=== PATIENT | female | born 2000 | race Two or more races ===

== ENCOUNTER 2020-07-03 10:17 | Outpatient (REF) | payer OTHER, MEDICAID, SELFPAY | END 2020-07-03 10:18 | disposition home or self-care (01) | LOC: HO.LAB 10:17 | PROVIDERS: Visit Provider Internal Medicine | DX: Z20.828 Contact with and (suspected) exposure to other viral communicable diseases (principal) | CPT/HCPCS: C9803; U0003 ==

== ENCOUNTER 2021-02-05 12:50 | Emergency (ER) | payer OTHER, SELFPAY ==
--- NOTE | ~2021-02-05 | XR_ITS ---
EXAMINATION: XR CHEST CLINICAL INFORMATION: Dry cough COMPARISON: None TECHNIQUE: 2 views of the chest were obtained. FINDINGS: No significant abnormality is noted involving the heart, lungs, mediastinum, bony thorax or soft tissues. XR/XR chest 2V IMPRESSION: Unremarkable chest exam.
[2021-02-05 12:53] VITALS: BP 132/82; PULSE 88; RESP 18; TEMP 36.6; O2SAT 97; BMI 18.8
--- NOTE | 2021-02-05 13:21 | ED.GENADULT ---
HPI - General Adult General Chief complaint: Upper Respiratory Symptoms Stated complaint: Ribs hurting, coughing Time Seen by Provider: 02/05/21 13:18 Source: patient Mode of arrival: ambulatory Limitations: no limitations History of Present Illness HPI narrative: 20 y/o female with history of asthma presents to the ER with left sided rib pain in the setting of dry cough for the last 2 weeks. She states the cough is worse at night and when she lays down. Pain is worse with coughing and movement. She is fully vaccinated against COVID. She denies fever, chills, difficulty breathing, phlegm production or chest pain. She has been using her albuterol with some improvement. She also reports some stuffy nose at night and post nasal drip. Denies history of allergies in the past. She sleeps with both an air conditioner and a fan. MD complaint: cough + rib pain Onset (ago): week(s) (2) Location: chest (left lateral) Severity: moderate Severity scale (1-10): 5 Quality: aching Pain Consistency: intermittent Relieving factors: rest Exacerbating factors: movement and other (cough) Associated symptoms: cough Treatments prior to arrival: none Related Data Previous Rx's Medication Instructions Recorded albuterol sulfate 1 inh INHALATION QID PRN #6.7 g 02/05/21 cetirizine [Zyrtec] 10 mg PO DAILY #14 tab 02/05/21 fluticasone propionate [Children's 1 spray INTRANASAL BID #16 g 02/05/21 Flonase Allergy Rlf] hydrocodone-homatropine [Hycodan] 5 ml PO Q6H PRN #60 ml 02/05/21 ibuprofen 600 mg PO Q8H PRN #20 tab 02/05/21 Allergies Allergy/AdvReac Type Severity Reaction Status Date / Time No Known Allergies Allergy Unverified 04/11/20 18:32 Review of Systems Review of Systems: Constitutional: No Fever, No Chills ENT/Mouth: No sore throat, + Rhinorrhea, No Swallowing Difficulty Cardiovascular: + Chest Pain, + SOB, No Orthopnea, No Edema Respiratory: + Cough, No Sputum, No Wheezing, No dyspnea Gastrointestinal: No Nausea, No Vomiting, No Diarrhea, No abdominal Pain Musculoskeletal: No joint pain, No Myalgias Skin: No Skin Lesions, No rash Neuro: No Weakness, No Numbness, No Dizziness, + Headache Heme/Lymph: No Bruising, No Lymphadenopathy PMFSH Past Medical History Attestation statement: The following information was validated with the patient. Medical History Asthma Social History Social History Alcohol intake: current Alcohol intake frequency: a few times a month Patient Tobacco Use Status: Never used Tobacco Smoked in Last 30 Days: No Use of substances other than those prescribed or required for medical reasons: No Advance Directives: Yes Advance Directives Information Provided: No Advance Directives on File: No Patient : No Physical Exam Vital Signs: Vital Signs: Last Vital Signs Temp 97.8 F 02/05/21 12:53 Pulse 88 02/05/21 12:53 Resp 18 02/05/21 12:53 BP 132/82 02/05/21 12:53 Pulse Ox 97 02/05/21 12:53 Body Mass Index 18.8 Appearance: Alert. Oriented X3. No acute distress. Eyes: Pupils equal, round and reactive to light. ENT: Pharynx normal. Neck: Normal inspection. Neck supple. CVS: Normal heart rate and rhythm. Pulses normal. Respiratory: No respiratory distress. Breath sounds normal. Left lateral chest wall with mild tenderness, no skin changes, no deformity palpable. Abdomen: Soft and nontender. +BS x4 Skin: Skin warm and dry. Normal skin color. Normal skin turgor. No rashes. Extremities: No lower extremity edema. No calf tenderness Neuro: Oriented X 3. No motor deficit. No sensory deficit. Course Course Course Narrative: 20 y/o female with history of mild intermittent asthma presenting with dry cough and rib pain x2 weeks. Lungs are clear on exam. Concern for possible seasonal allergies vs GERD causing nocturnal cough. CXR is clear. Will treat for costochondritis with NSAID and antitussive. Will also start empiric zyrtec and flonase for possible allergies. Encouraged to be more regular with omprazole at home to see if this helps her cough. She has no other signs or symptoms of acute respiratory infection. No role for abx. Encouraged to f/u with her PCP. Stable for d/c home. Critical Care Time Critical Care Time Critical Care Time: No Discharge Plan Discharge Clinical Impression: Acute costochondritis Allergies Qualifiers: Encounter type: initial encounter Qualified Code(s): T78.40XA - Allergy, unspecified, initial encounter Patient Disposition: Home, Self-Care Instructions: Costochondritis (ED), Allergies (ED), Acute Cough (ED) Additional Instructions: Your chest x-ray was normal. Take the prescribed ibuprofen for rib pain. Recommend starting treatment for possible seasonal allergies for the next 2 weeks. Also recommend starting over the counter omeprazole for heartburn and reflux, as this can also cause a cough. Use your albuterol inhaler as needed for shortness of breath or wheezing. Follow up with your doctor in 1 week. If you have worsening cough, shortness of breath or develop fever, phlegm or wheezing come back to the ER for further evaluation. Prescriptions: New albuterol sulfate 90 mcg/actuation HFA aerosol inhaler 1 inh inhalation QID PRN (Reason: shortness of breath or wheezing) Qty: 6.7 RF: 0 ibuprofen 600 mg tablet 600 mg PO Q8H PRN (Reason: pain) Qty: 20 RF: 0 fluticasone propionate [Children's Flonase Allergy Rlf] 50 mcg/actuation spray,suspension 1 spray intranasal BID Qty: 16 RF: 0 cetirizine [Zyrtec] 10 mg tablet 10 mg PO DAILY Qty: 14 RF: 0 hydrocodone-homatropine [Hycodan] 5-1.5 mg/5 mL (5 mL) syrup 5 ml PO Q6H PRN (Reason: cough) Qty: 60 RF: 0 Interventions: ED Discharge Assessment Last Done: 02/05/21 13:56 Discharge Date/Time: 02/05/21 13:57
== END 2021-02-05 13:57 | disposition home or self-care (01) ==
PROVIDERS: Emergency Provider Emergency Medicine
DX: M94.0 Chondrocostal junction syndrome [Tietze] (principal); R05 Cough; Z79.899 Other long term (current) drug therapy
CPT/HCPCS: 71046; 99284

== ENCOUNTER 2021-09-10 10:31 | Emergency (ER) | payer OTHER, SELFPAY ==
[2021-09-10 10:55] VITALS: BP 119/80; PULSE 87; RESP 16; TEMP 36.8; O2SAT 100; BMI 19.3
--- NOTE | 2021-09-10 11:09 | ED_ITS ---
HPI - URI/Sore Throat General Chief Complaint: Upper Respiratory Symptoms Stated Complaint: cough, chest pain w/cough Time Seen by Provider: 09/10/21 10:57 Source: patient Mode of arrival: ambulatory Limitations: no limitations History of Present Illness HPI Narrative: 21-year-old female who presents emergency department for evaluation cough, chest pain shortness of breath dyspnea on exertion x3 weeks. The patient has a history of asthma. She states that she has been using her steroid inhaler twice a day and has had to use her albuterol inhaler 4-5 taken today which is an unusual amount for her. She states that despite using her albuterol inhaler she still feels short of breath. She states that over the past 3 weeks she has had a cough which is productive of thick yellow to white sputum. She is also complaining of chest pain. She points to her sternum when asked to localize the pain. The pain is a tightness which is constant but is worse with breathing and with coughing, the pain is 7/10 at its worst. The patient denied fever, she has had rhinorrhea. She states that in the beginning of her illness she did have a sore throat times several days that then resolved. She has had nausea but no vomiting. She denied diarrhea or abdominal pain. She denied myalgias, arthralgias, loss of sense of taste or smell. The patient received the Pfizer COVID-19 vaccine x2 shots he has not received a booster shot yet. MD elicited complaint: cough and other (Chest pain) Pertinent past history: asthma Onset (ago): week(s) (3) Consistency: constant and progressively worsening Severity: severe Pain scale (0-10): 7 Description of mucous: yellow, green and bloody (Occasionally) Able to tolerate fluids by mouth: Yes Exacerbating factors: deep breaths Relieving factors: nothing Associated symptoms: rhinorrhea, sore throat and nausea Treatments prior to arrival: none Related Data Previous Rx's Medication Instructions Recorded albuterol sulfate 90 mcg/actuation 1 inh INHALATION QID PRN #6.7 g 02/05/21 aerosol inhaler cetirizine 10 mg tablet (Zyrtec) 10 mg PO DAILY #14 tab 02/05/21 fluticasone propionate 50 1 spray INTRANASAL BID #16 g 02/05/21 mcg/actuation nasal spray,suspension (Children's Flonase Allergy Relief) hydrocodone-homatropine 5 mg-1.5 5 ml PO Q6H PRN #60 ml 02/05/21 mg/5 mL (5 mL) oral syrup (Hycodan) ibuprofen 600 mg tablet 600 mg PO Q8H PRN #20 tab 02/05/21 azithromycin 250 mg tablet See Rx Instructions .ROUTE 09/10/21 (Zithromax Z-Sergio) .COMPLEX #6 tab prednisone 20 mg tablet 60 mg PO DAILY 5 Days #15 tab 09/10/21 Allergies Allergy/AdvReac Type Severity Reaction Status Date / Time No Known Allergies Allergy Unverified 04/11/20 18:32 Review of Systems Review of Systems: Yes all other systems are reviewed and are negative Neurologic: Reports Abnormal speech present [facility] Past Medical History [facility] Narrative: Past medical history: Asthma. Past surgical history: Left knee ACL repair. Social history: She denies tobacco use. She occasionally drinks alcohol. She denies drug use. Medical History Asthma Social History Social History Alcohol intake: current Alcohol intake frequency: a few times a month Patient Tobacco Use Status: Never used Tobacco Advance Directives: No Advance Directives Information Provided: No Patient : No Physical Exam Vital Signs: Vital Signs: Last Vital Signs Temp 98.3 F 09/10/21 10:55 Pulse 87 09/10/21 10:55 Resp 16 09/10/21 10:55 BP 119/80 09/10/21 10:55 Pulse Ox 100 09/10/21 10:55 BMI result Body Mass Index 19.3 Const: General: cooperative, no acute distress, well developed, alert and awake Orientation/consciousness: oriented to person HENMT: Head: Yes normal to inspection, Yes normocephalic and Yes atraumatic Ears: hearing grossly normal bilaterally General nose exam: Normal external nose present Face and sinus: Yes normal facial exam Mouth: Normal oral and palatal mucosa present, lip normal, tongue normal, oropharynx normal and moist mucous membranes Throat: Yes posterior oropharynx normal, Yes tonsils normal and Yes uvula midline Eyes: General: appearance normal, both eyes and all related structures Eyelids: Yes eyelids normal Conjunctivae: conjunctivae normal Sclerae: sclerae normal Corneas: corneas normal Pupils: Equal, round and reactive pupils present Neck: Neck: Yes normal visual inspection, Yes no lymphadenopathy, Yes trachea midline and Yes supple Thyroid: Thyroid normal Lymphatic: no lymphadenopathy noted Chest: Chest palpation & inspection: normal inspection of the chest and normal palpation of entire chest wall Resp: Effort & Inspection: normal respiratory effort and able to speak in complete sentences Auscultation: clear to auscultation bilaterally Cardio: Rate: regular rate Rhythm: regular rhythm Heart sounds: S1 normal heart sound present, S2 normal heart sound present and no murmurs GI: Inspection: Yes normal to inspection Palpation (GI): Soft to palpation, nontender and No hepatosplenomegaly present Auscultation: normal bowel sounds : General: Yes no CVA tenderness Back/Spine/Pelvis: Back: no CVA tenderness Thoracic/Lumbar Spine: thoracic and lumbar spine normal to inspection Skin: General skin exam: no rashes or lesions noted, no erythema and no jaundice Lesions: no lesions Rashes: no rashes Trauma: no lacerations or abrasions Wounds: no wounds Neuro: General: oriented to person, moves all extremities and no focal motor deficits Cranial nerves: Yes Equal, round and reactive pupils present Cognition (Neuro): normal cognition Speech: Abnormal speech present Motor exam (neuro): Motor abnormalities not present Extrem: General: Yes normal to inspection, Yes no pedal edema and Yes no calf tenderness Right upper extremity: normal to inspection Left upper extremity: normal to inspection Right lower extremity: normal to inspection Left lower extremity: normal to inspection Psych: Appearance: grossly normal Mental Status: mental status grossly normal Speech and movement: Normal speech and movement present Affect: normal affect Attitude: cooperative Thought process: Normal thought process present Insight: Good insight present (Psych) Course Course Course Narrative: 21-year-old female with a history of asthma who presents emergency department for evaluation of 3 weeks of cough productive thick yellow to green sputum with occasional bloody sputum, pleuritic chest pain, shortness of breath and dyspnea exertion. Patient has continue to use her steroid inhaler daily and has had to use her albuterol inhaler more frequently which is unusual for her asthma. Vital signs were normal including an O2 saturation 100% on room air. Physical exam was unremarkable . The patient's presentation is consistent with an atypical bacterial infection possible pneumonia and asthma exacerbation. I did discuss this with the patient. She was started on Zithromax Z-Sergio and prednisone 60 mg daily x5 days. She was given printed and verbal instructions and discharged home. Discharge Plan Discharge Clinical Impression: Upper respiratory infection, Asthma exacerbation Patient Disposition: Home, Self-Care Instructions: Asthma (ED) Additional Instructions: Your lung exam today was normal. Your oxygen level was 100% on room air which is very reassuring. Your symptoms are consistent with an atypical bacterial infection causing your cough and causing you to have a flare-up of your asthma. Continue to use your to inhalers as directed by your doctor. Take Zithromax (azithromycin) Z-Sergio as prescribed. Day 1 take 2 pills, each day after that take 1 pill for total of 5 days. This medication states in your system for 7-10 days and continues to work despite only taking it for 5 days. This medication will treat bacterial infections that are causing a flare-up of your asthma. Take prednisone 20 mg pills, 3 pills once a day for 5 days. Follow-up with your doctor in 2 days. Please return to the emergency department if your symptoms get worse or if you develop any symptoms that are concerning to you. Prescriptions: New azithromycin [Zithromax Z-Sergio] 250 mg tablet See Rx Instructions .ROUTE .COMPLEX Qty: 6 0RF Rx Instructions: take 500 mg today (day 1), then 250 mg for 4 days (days 2-5) prednisone 20 mg tablet 60 mg PO DAILY 5 Days Qty: 15 0RF No Action albuterol sulfate 90 mcg/actuation HFA aerosol inhaler 1 inh inhalation QID PRN (Reason: shortness of breath or wheezing) Qty: 6.7 0RF ibuprofen 600 mg tablet 600 mg PO Q8H PRN (Reason: pain) Qty: 20 0RF fluticasone propionate [Children's Flonase Allergy Rlf] 50 mcg/actuation spray,suspension 1 spray intranasal BID Qty: 16 0RF Rx Instructions: administer into each nostril cetirizine [Zyrtec] 10 mg tablet 10 mg PO DAILY Qty: 14 0RF hydrocodone-homatropine [Hycodan] 5-1.5 mg/5 mL (5 mL) syrup 5 ml PO Q6H PRN (Reason: cough) Qty: 60 0RF Rx Instructions: partial fill ok
== END 2021-09-10 11:25 | disposition home or self-care (01) ==
PROVIDERS: Emergency Provider Emergency Medicine Emergency Medical Services
DX: J06.9 Acute upper respiratory infection, unspecified (principal); J45.901 Unspecified asthma with (acute) exacerbation; Z79.51 Long term (current) use of inhaled steroids; Z79.899 Other long term (current) drug therapy
CPT/HCPCS: 99283; 99284

== ENCOUNTER 2021-12-29 11:59 | Outpatient (REF) | payer OTHER, SELFPAY ==
--- NOTE | ~2021-12-29 | XR_ITS ---
EXAMINATION: KNEE X-RAY CLINICAL INFORMATION: Pain COMPARISON: Previous evening x-ray October 2016 TECHNIQUE: Standing AP view of both knees and lateral and sunrise view of the left knee FINDINGS: Left knee: There are postsurgical changes from ACL repair. There is defect in the anterior cortex of the mid patella seen on the sunrise view that is new. There is new periosteal thickening at the patellar tendon insertion to the tibia. The joint spaces are normal. There is no joint effusion. There may be soft tissue swelling overlying the patellar tendon. Standing AP view of the right knee is unremarkable XR/XR knee standing BI IMPRESSION: Left knee post ACL repair. New midline defect in the anterior patella, question representing postsurgical change. New periosteal reaction at the patellar tendon insertion.
--- NOTE | ~2021-12-29 | XR_ITS ---
EXAMINATION: KNEE X-RAY CLINICAL INFORMATION: Pain COMPARISON: Previous evening x-ray October 2016 TECHNIQUE: Standing AP view of both knees and lateral and sunrise view of the left knee FINDINGS: Left knee: There are postsurgical changes from ACL repair. There is defect in the anterior cortex of the mid patella seen on the sunrise view that is new. There is new periosteal thickening at the patellar tendon insertion to the tibia. The joint spaces are normal. There is no joint effusion. There may be soft tissue swelling overlying the patellar tendon. Standing AP view of the right knee is unremarkable XR/XR knee LT 2V IMPRESSION: Left knee post ACL repair. New midline defect in the anterior patella, question representing postsurgical change. New periosteal reaction at the patellar tendon insertion.
== END 2021-12-29 12:00 | disposition home or self-care (01) ==
LOC: HO.HOSX 11:59
PROVIDERS: Visit Provider Orthopaedic Surgery
DX: Z98.890 Other specified postprocedural states (principal)
CPT/HCPCS: 73560; 73565; 99202

== ENCOUNTER 2022-02-10 15:51 | Outpatient (REF) | payer OTHER, SELFPAY ==
--- NOTE | ~2022-02-10 | MR_ITS ---
EXAMINATION: MR KNEE WITHOUT CONTRAST, LEFT CLINICAL INFORMATION: Left knee pain. ACL reconstruction. COMPARISON: 04/12/2018 TECHNIQUE: MRI of the knee without contrast was performed using routine sequences on a high-field scanner. FINDINGS: MENISCI: Medial Meniscus: Intact Lateral Meniscus: Intact LIGAMENTS: Cruciate: Partial tearing involving the anterior aspect of the graft, with fibers displaced anteriorly, along with synovitis and low signal intensity scar tissue overall measuring 2.5 x 1.0 x 1.8 cm. This has increased since the previous study. The posterior cruciate ligament appears intact. Collateral: Intact EXTENSOR MECHANISM: Postsurgical changes of the patella and tendon. ARTICULAR CARTILAGE/BONE: Patellofemoral Compartment: Normal Medial Compartment: Normal Lateral Compartment: Normal JOINT FLUID AND BURSAE: Trace joint effusion. MR/MR knee LT wo con IMPRESSION: Partial tearing involving the anterior aspect of the ACL graft with prominent soft tissue projecting anteriorly likely representing graft fibers, synovitis, and scarring overall measuring 2.5 x 1.0 x 1.8 cm, increased from the previous study. There is a trace joint effusion.
== END 2022-02-10 15:52 | disposition home or self-care (01) ==
LOC: HO.MRI 15:51
PROVIDERS: Visit Provider Orthopaedic Surgery
DX: Z98.890 Other specified postprocedural states (principal)
CPT/HCPCS: 73721

== ENCOUNTER 2022-07-08 01:35 | Emergency (ER) | payer OTHER, SELFPAY ==
[2022-07-08 01:38] VITALS: BP 114/69; PULSE 90; RESP 16; TEMP 36.7; O2SAT 96; BMI 18.8
[2022-07-08 02:28] LABS: Influenza A PCR NEGATIVE (Negative); Influenza B PCR NEGATIVE (Negative); Resp Syncy Virus RNA Qual PCR NEGATIVE (Negative); SARS COV2 PCR INHOUSE POSITIVE (Negative)
[2022-07-08 05:00] VITALS: BP 111/74; PULSE 84; RESP 18; TEMP 37; O2SAT 98
--- NOTE | 2022-07-08 06:32 | ED_ITS ---
HPI - URI/Sore Throat General Chief Complaint: Upper Respiratory Symptoms Stated Complaint: body aches Time Seen by Provider: 07/08/22 06:26 Source: patient Mode of arrival: ambulatory History of Present Illness HPI Narrative: 22-year-old female who lives at home by herself started with body aches, headaches, chills as well as sore throat since yesterday. Related Data Previous Rx's Medication Instructions Recorded albuterol sulfate 90 mcg/actuation 1 inh inhalation QID PRN shortness 02/05/21 aerosol inhaler of breath or wheezing #6.7 grams cetirizine 10 mg tablet (Zyrtec) 10 mg PO DAILY #14 tabs 02/05/21 fluticasone propionate 50 1 spray intranasal BID #16 grams 02/05/21 mcg/actuation nasal spray,suspension (Children's Flonase Allergy Relief) hydrocodone-homatropine 5 mg-1.5 5 ml PO Q6H PRN cough #60 mL 02/05/21 mg/5 mL (5 mL) oral syrup (Hycodan) ibuprofen 600 mg tablet 600 mg PO Q8H PRN pain #20 tabs 02/05/21 azithromycin 250 mg tablet See Rx Instructions PO .COMPLEX #6 09/10/21 (Zithromax Z-Sergio) tabs prednisone 20 mg tablet 60 mg PO DAILY 5 days #15 tabs 09/10/21 Allergies Allergy/AdvReac Type Severity Reaction Status Date / Time No Known Allergies Allergy Verified 12/29/21 14:23 Review of Systems Review of Systems: Pertinent positives and negatives as stated in HPI. [facility] Past Medical History Source: nursing notes reviewed Medical History Asthma Social History Social History Alcohol intake: current Alcohol intake frequency: a few times a month Patient Tobacco Use Status: Never used Tobacco Advance Directives: No Advance Directives Information Provided: Yes Physical Exam Vital Signs: Vital Signs: Last Vital Signs Temp 98.6 F 07/08/22 05:00 Pulse 84 07/08/22 05:00 Resp 18 07/08/22 05:00 BP 111/74 07/08/22 05:00 Pulse Ox 98 07/08/22 05:00 O2 Del Method 07/08/22 05:00 BMI result Body Mass Index 18.8 VITAL SIGNS: Reviewed. GENERAL: Well developed, well nourished, in no acute distress. HEAD: Normocephalic/atraumatic EYES: PERRLA, EOMI EARS: Ext canals without abnormality, TMs non-bulging and non-erythematous NOSE: Nares patent bilateral OROPHARYNX: no oral lesions noted, posterior pharynx clear and non-erythematous without noted tonsillar enlargement/erythema/exudates NECK: Supple, no adenopathy LUNGS: Normal breath sounds. No adventitious sounds or accessory muscle use. SpO2<98> CARDIOVASCULAR: Regular rate and rhythm without noted murmurs ABDOMEN: Soft, non-tender, non-distended with bowel sounds. MUSCULOSKELETAL: No tenderness, deformities, or effusions noted on gross inspection. EXTREMITIES: No cyanosis, clubbing or edema. SKIN: Inspection of the skin reveals no rashes NEUROLOGIC: Alert and oriented x 4. Strength and sensation to light touch were grossly intact x 4. Course Course Course Narrative: 22-year-old female with history and clinical presentation most consistent with viral syndrome and on review of investigations is noted be COVID-19 positive. Patient was informed of all results and discharged home with instructions to isolate for 5 days and use [id number] analgesics for body aches and temperatures control. Medical Decision Making Lab Data Labs: Lab Results 07/08/22 Range/Units 01:45 Influenza Type A (PCR) NEGATIVE (Negative) Influenza Type B (PCR) NEGATIVE (Negative) RSV RNA Qual (PCR) NEGATIVE (Negative) SARS-CoV-2 RNA (RT-PCR) POSITIVE A (Negative) Discharge Plan Discharge Clinical Impression: Viral syndrome, Lab test positive for detection of COVID-19 virus Patient Disposition: Home, Self-Care Instructions: Viral Syndrome (ED), COVID-19 (Coronavirus Disease 2019) (ED) Additional Instructions: 1. Resume all home medications as prescribed. 2. Increase your water intake as well as utilizing [id number] Tylenol/ibuprofen as needed for body aches, headaches, temperatures greater than 100.4. You have been diagnosed with COVID-19 and must isolate for the next 5 days. You will then need to follow all employer your/states/Federal guidelines. Return to the ER for worsening symptoms Prescriptions: No Action albuterol sulfate 90 mcg/actuation HFA aerosol inhaler 1 inh inhalation QID PRN (Reason: shortness of breath or wheezing) Qty: 6.7 0RF ibuprofen 600 mg tablet 600 mg PO Q8H PRN (Reason: pain) Qty: 20 0RF fluticasone propionate [Children's Flonase Allergy Rlf] 50 mcg/actuation spray,suspension 1 spray intranasal BID Qty: 16 0RF Rx Instructions: administer into each nostril cetirizine [Zyrtec] 10 mg tablet 10 mg PO DAILY Qty: 14 0RF hydrocodone-homatropine [Hycodan] 5-1.5 mg/5 mL (5 mL) syrup 5 ml PO Q6H PRN (Reason: cough) Qty: 60 0RF Rx Instructions: partial fill ok azithromycin [Zithromax Z-Sergio] 250 mg tablet See Rx Instructions .ROUTE .COMPLEX Qty: 6 0RF Rx Instructions: take 500 mg today (day 1), then 250 mg for 4 days (days 2-5) prednisone 20 mg tablet 60 mg PO DAILY 5 Days Qty: 15 0RF Referrals: Eliu,Kaya Bergman MD [Primary Care Provider] - Stand Alone Forms: Work/School Release Interventions: ED Discharge Assessment Last Done: 07/08/22 07:02 Discharge Date/Time: 07/08/22 07:02
== END 2022-07-08 07:02 | disposition home or self-care (01) ==
PROVIDERS: Emergency Provider Student in an Organized Health Care Education/Training Program; PCP Internal Medicine
DX: U07.1 COVID-19 (principal); B34.9 Viral infection, unspecified
CPT/HCPCS: 0241U; 99283

== ENCOUNTER 2022-07-29 18:00 | Emergency (ER) | payer OTHER, SELFPAY ==
--- NOTE | ~2022-07-29 | US_ITS ---
EXAMINATION: US ABDOMEN LIMITED CLINICAL INFORMATION: Right upper quadrant/epigastric pain with nausea and vomiting. COMPARISON: CT abdomen/pelvis 05/01/2014. TECHNIQUE: Real-time imaging of the right upper quadrant abdominal viscera. FINDINGS: PANCREAS: Normal. LIVER: Normal. The liver is normal in size. The liver contour is normal. Parenchymal echogenicity is normal. No focal hepatic lesion. There is no intrahepatic biliary duct dilatation seen. GALLBLADDER: Normal. The gallbladder is physiologically distended without evidence of stones, sludge, polyps, wall thickening or pericholecystic fluid. COMMON BILE DUCT: Normal in caliber measuring 0.2 cm in diameter. RIGHT KIDNEY: Normal. No hydronephrosis. No renal calculi or focal parenchymal lesions. The kidney measures 10 cm in maximum dimension. FREE FLUID: None. US/US abdomen limited IMPRESSION: No acute sonographic abnormalities to explain the patient's symptoms.
[2022-07-29 18:29] VITALS: BP 122/76; PULSE 82; RESP 16; TEMP 36.8; O2SAT 99; BMI 19.5
--- NOTE | 2022-07-29 18:29 | ED_ITS ---
HPI - Abdominal Pain General Chief Complaint: Abdominal Pain <WHIT Abdullahi - Last Filed: 07/29/22 18:33> Stated Complaint: sharp abdominal pain, vomiting <WHIT Abdullahi - Last Filed: 07/29/22 18:33> Time Seen by Provider: 07/30/22 00:37 <WHIT Abdullahi - Last Filed: 07/29/22 18:33> Source: patient <Cortney Fyre MD - Last Filed: 07/30/22 06:25> Mode of arrival: ambulatory <Cortney Frye MD - Last Filed: 07/30/22 06:25> Limitations: no limitations <Cortney Frye MD - Last Filed: 07/30/22 06:25> History of Present Illness HPI narrative: 22-year-old female came in for evaluation of abdominal pain and vomiting. Patient's symptoms started since yesterday after eating home in rice and chicken everybody in the family ate from the same food nobody got sick, patient shortly after started to have epigastric upper abdominal pain with nausea and vomiting that is progressively since then getting worse, patient was unable to tolerate p.o. intake all day with frequent vomiting, no diarrhea, no recent travel, no recent use of antibiotics, no recent exposure to a sick contact Patient is homosexual and decline indications pain , no vaginal bleed or discharge, no dysuria, no frequency urination, no hematuria , no fever, no chills. <Cortney Frye MD - Last Filed: 07/30/22 06:25> Related Data Home Medications: Previous Rx's Medication Instructions Recorded albuterol sulfate 90 mcg/actuation 1 inh inhalation QID PRN shortness 02/05/21 aerosol inhaler of breath or wheezing #6.7 grams cetirizine 10 mg tablet (Zyrtec) 10 mg PO DAILY #14 tabs 02/05/21 fluticasone propionate 50 1 spray intranasal BID #16 grams 02/05/21 mcg/actuation nasal spray,suspension (Children's Flonase Allergy Relief) hydrocodone-homatropine 5 mg-1.5 5 ml PO Q6H PRN cough #60 mL 02/05/21 mg/5 mL (5 mL) oral syrup (Hycodan) ibuprofen 600 mg tablet 600 mg PO Q8H PRN pain #20 tabs 02/05/21 azithromycin 250 mg tablet See Rx Instructions PO .COMPLEX #6 09/10/21 (Zithromax Z-Sergio) tabs prednisone 20 mg tablet 60 mg PO DAILY 5 days #15 tabs 09/10/21 omeprazole magnesium 20 mg 20 mg PO BID #20 tabs 07/30/22 tablet,delayed release (Prilosec OTC) ondansetron 4 mg disintegrating 4 mg PO Q8-12H PRN nausea and 07/30/22 tablet vomiting #7 tabs <WHIT Abdullahi - Last Filed: 07/29/22 18:33> Allergies/Adverse Reactions: Allergies Allergy/AdvReac Type Severity Reaction Status Date / Time No Known Allergies Allergy Verified 12/29/21 14:23 <WHIT Abdullahi - Last Filed: 07/29/22 18:33> Review of Systems Review of Systems All other systems are reviewed and are negative Constitutional: Reports as per HPI and Reports no additional constitutional complaints Eyes: Reports as per HPI and Reports no additional eye complaints Reports system reviewed and no additional complaints, except as documented Cardiovascular: Reports as per HPI and Reports no additional cardiovascular com plaints Respiratory: Reports as per HPI and Reports no additional respiratory complaints Gastrointestinal: Reports as per HPI and Reports no additional gastrointestinal complaints Genitourinary: Reports no additional female genitourinary complaints Musculoskeletal: Reports no additional musculoskeletal complaints Skin/Breast: Reports system reviewed and no additional complaints, except as docu Psychiatric: Reports no additional psychiatric complaints Endocrine: Reports no additional endocrine complaints Hematologic/Lymphatic: Reports no additional hematologic/lymphatic complaints Allergic/Immunologic: Reports no additional allergic/immunologic complaints Reports system reviewed and no additional complaints, except as documented and Reports Abnormal speech present <Cortney Frye MD - Last Filed: 07/30/22 06:25> [facility] Past Medical History Medical History: Medical History Asthma <WHIT Abdullahi - Last Filed: 07/29/22 18:33> Social History Social History: Social History Alcohol intake: current Alcohol intake frequency: a few times a week Patient Tobacco Use Status: Never used Tobacco Smoked in Last 30 Days: No Use of substances other than those prescribed or required for medical reasons: Yes Substance Use Type: Marijuana Advance Directives: No Patient : No <WHIT Abdullahi - Last Filed: 07/29/22 18:33> Physical Exam ED Vital Signs: Vital Signs - 24 hr 07/29/22 18:29 07/30/22 00:48 07/30/22 04:56 Temperature 98.3 F 98.5 F 98.5 F Pulse Rate 82 75 73 Respiratory Rate 16 18 17 Blood Pressure 122/76 118/80 120/78 Pulse Oximetry 99 100 100 Oxygen Delivery Method Room Air Room Air Room Air BMI result Body Mass Index 19.5 <WHIT Abdullahi - Last Filed: 07/29/22 18:33> Vital Signs - 24 hr 07/29/22 18:29 07/30/22 00:48 07/30/22 04:56 Temperature 98.3 F 98.5 F 98.5 F Pulse Rate 82 75 73 Respiratory Rate 16 18 17 Blood Pressure 122/76 118/80 120/78 Pulse Oximetry 99 100 100 Oxygen Delivery Method Room Air Room Air Room Air BMI result Body Mass Index 19.5 vital signs have been reviewed as appeared to be correct. Blood pressure normal. Heart rate normal. Respiration rate normal. Temperature normal. Oxygen saturation normal. <Cortney Frye MD - Last Filed: 07/30/22 06:25> Appearance: Alert. Oriented X3. No acute distress. Head: Normal external exam. Normocephalic. Atraumatic. No Chowdhury signs noted. No raccoon eyes noted Eyes: PERRLA. EOMI. Conjunctiva and sclera normal. Eyelids normal. ENT: TM's Normal. Pharynx normal. Uvula midline. Moist mucous membranes. No trismus noted. No drooling noted. No muffled voice noted. Neck: Normal inspection. Neck supple. FROM. No adenopathy. Thyroid Normal. No meningeal signs. No neck mass noted. CVS: Normal heart rate and rhythm. Heart sound normal. No murmurs noted. Pulses normal throughout. Respiratory: No respiratory distress. Painless inspiration. Breath sounds normal. No wheezes/rales/rhonchi noted. Chest nontender. No accessory muscle usage noted or decreased air movement noted. Abdomen: Soft , epigastric tenderness with no guarding or rebound tenderness . Bowel sounds normal in all 4 quadrants. No distention noted. No organomegaly noted. No visible injury noted. Back: No CVA tenderness. Full range of motion noted. Skin: Skin warm and dry. Normal skin color. Normal skin turgor. No dale hes/lesions/lacerations noted. Extremities: No lower extremity edema. Extremities exhibit normal range of motion. Extremities nontender. Neuro: Oriented X 3. Cranial nerve exam: II-XII are grossly intact No motor deficit. No sensory deficit. Reflexes normal. <Cortney Frye MD - Last Filed: 07/30/22 06:25> Course Course Course Narrative: RME--22yo F w/pmhx asthma c/o epigastric abdominal pain, nausea, vomiting, diarrhea x 2 days. Reports unable to tolerate p.o. Denies suspicious food intake or recent travel Abdomen soft with epigastric and RUQ tenderness, no rebound or guarding Labs, UA, , IVF, GI cocktail, limited abdomen ultrasound ordered <WHIT Abdullahi - Last Filed: 07/29/22 18:33> Reevaluation(s) Reevaluation #1: epigastric pain after eating rice and chicken with nausea and vomiting no diarrhea no other sick contacts unremarkable workup. In the emergency department. Patient already feels better with IV hydration and antinausea medication. <Cortney Frye MD - Last Filed: 07/30/22 06:25> Time: 01:01 <Cortney Frye MD - Last Filed: 07/30/22 06:25> Reevaluation #2: Patient feels better reported improvement and able to tolerate p.o. inta ke will discharge. <Cortney Frye MD - Last Filed: 07/30/22 06:25> Time: 06:25 <Cortney Frye MD - Last Filed: 07/30/22 06:25> Medical Decision Making Differential Diagnosis Differential Diagnoses: The differential diagnosis associated with the presentation includes ( gastritis, food poisoning, gastroenteritis, UTI, biliary colic, renal colic, pyelonephritis, complicated early .) <Cortney Frye MD - Last Filed: 07/30/22 06:25> Lab Data MDM Lab Attestation statement: I reviewed the patient's lab results. <Cortney Frye MD - Last Filed: 07/30/22 06:25> Result Diagrams: : 07/29/22 23:00 07/29/22 23:00 <WHIT Abdullahi - Last Filed: 07/29/22 18:33> Labs: Lab Results 07/29/22 07/29/22 07/29/22 Range/Units 22:56 23:00 23:00 WBC 3.7 L (4.8-10.8) X10*3/uL RBC 4.23 (4.20-5.50) X10*6/uL Hgb 13.6 (12.0-16.0) g/dl Hct 39.5 (37.0-47.0) % MCV 93.4 (80.0-98.0) fL MCH 32.2 (27.0-33.0) pg MCHC 34.4 (31.0-35.0) g/dl RDW 11.9 (11.0-16.0) % Plt Count 125 L (160-400) X10*3/uL MPV 10.7 (9.4-12.3) fL Immature Gran % (Auto) 0.5 H (0.0-0.4) % Neut % (Auto) 69.1 (45-73) % Lymph % (Auto) 16.0 L (20-40) % [place] % (Auto) 13.6 H (2-11) % Eos % (Auto) 0.5 (0-4) % Baso % (Auto) 0.3 (0-2) % Lymph # (Auto) 0.6 L (1.2-4.9) X10*3/uL [place] # (Auto) 0.5 (0.1-1.2) X10*3/uL Eos # (Auto) 0.0 (0.0-0.4) X10*3/uL Baso # (Auto) 0.0 (0.0-0.2) X10*3/uL Abs Immat Gran (auto) 0.02 (0.00-0.03) X10*3/uL Absolute Neuts (auto) 2.6 (2.0-8.3) x10*3/uL Absolute Nucleated RBC 0.000 (0.0-0.012) X10*3/uL Nucleated RBC % (auto) 0.0 (0.0-0.2) /100WBC Sodium 138 (135-145) mmol/L Potassium 3.9 (3.3-5.1) mmol/L Chloride 106 (96-108) mmol/L Carbon Dioxide 23 (22-29) mmol/L Anion Gap 13 (12-20) BUN 9 (9-16) mg/dL Creatinine 0.71 (0.5-1.4) mg/dL Estim Creat Clear Calc 110.2 Estimated GFR > 60 Random Glucose 91 (60-115) mg/dL Calcium 9.4 (8.4-10.2) mg/dL Magnesium 1.8 (1.6-2.6) mg/dL Total Bilirubin 0.8 (0.0-1.0) mg/dL Direct Bilirubin 0.4 (0.0-0.5) mg/dL AST 17 (5-31) U/L ALT 12 (0-31) U/L Alkaline Phosphatase 57 (39-117) U/L Total Protein 7.3 (6.5-8.0) g/dL Albumin 4.5 (3.5-5.0) g/dL Lipase 7 L (8-78) U/L Urine Color Urine Appearance Urine pH (5.0-9.0) Ur Specific [place] (1.005-1.025) Urine Protein (Neg-Trace) mg/dL Urine Glucose (UA) (Negative) mg/dL Urine Ketones (Negative) mg/dL Urine Blood (Negative) Urine Nitrite (Negative) Ur Leukocyte Esterase (Negative) Urine RBC (0-2) /HPF Urine WBC (0-5) /HPF Ur Squamous Epith Cells (0-2) /HPF Urine Bacteria (None Seen) Hyaline Casts (0-2) /LPF Urine Test (NEGATIVE) COVID-19 (ADRIANNE) Negative (Negative) COVID-19 Clin Com See Note Influenza Type A (JEANNA) (Negative) Influenza Type B (JEANNA) (Negative) Influenza A & B Note 07/30/22 07/30/22 07/30/22 Range/Units 00:43 01:00 01:00 WBC (4.8-10.8) X10*3/uL RBC (4.20-5.50) X10*6/uL Hgb (12.0-16.0) g/dl Hct (37.0-47.0) % MCV (80.0-98.0) fL MCH (27.0-33.0) pg MCHC (31.0-35.0) g/dl RDW (11.0-16.0) % Plt Count (160-400) X10*3/uL MPV (9.4-12.3) fL Immature Gran % (Auto) (0.0-0.4) % Neut % (Auto) (45-73) % Lymph % (Auto) (20-40) % [place] % (Auto) (2-11) % Eos % (Auto) (0-4) % Baso % (Auto) (0-2) % Lymph # (Auto) (1.2-4.9) X10*3/uL [place] # (Auto) (0.1-1.2) X10*3/uL Eos # (Auto) (0.0-0.4) X10*3/uL Baso # (Auto) (0.0-0.2) X10*3/uL Abs Immat Gran (auto) (0.00-0.03) X10*3/uL Absolute Neuts (auto) (2.0-8.3) x10*3/uL Absolute Nucleated RBC (0.0-0.012) X10*3/uL Nucleated RBC % (auto) (0.0-0.2) /100WBC Sodium (135-145) mmol/L Potassium (3.3-5.1) mmol/L Chloride (96-108) mmol/L Carbon Dioxide (22-29) mmol/L Anion Gap (12-20) BUN (9-16) mg/dL Creatinine (0.5-1.4) mg/dL Estim Creat Clear Calc Estimated GFR Random Glucose (60-115) mg/dL Calcium (8.4-10.2) mg/dL Magnesium (1.6-2.6) mg/dL Total Bilirubin (0.0-1.0) mg/dL Direct Bilirubin (0.0-0.5) mg/dL AST (5-31) U/L ALT (0-31) U/L Alkaline Phosphatase (39-117) U/L Total Protein (6.5-8.0) g/dL Albumin (3.5-5.0) g/dL Lipase (8-78) U/L Urine Color Dark Yellow Urine Appearance Clear Urine pH 5.5 (5.0-9.0) Ur Specific [place] >= 1.030 H (1.005-1.025) Urine Protein 30 (1+) H (Neg-Trace) mg/dL Urine Glucose (UA) Negative (Negative) mg/dL Urine Ketones 80 (Negative) mg/dL Urine Blood Moderate (2+) H (Negative) Urine Nitrite Negative (Negative) Ur Leukocyte Esterase Negative (Negative) Urine RBC 0-2 (0-2) /HPF Urine WBC 0-5 (0-5) /HPF Ur Squamous Epith Cells 3-5 (0-2) /HPF Urine Bacteria None Seen (None Seen) Hyaline Casts 3-5 (0-2) /LPF Urine Test NEGATIVE (NEGATIVE) COVID-19 (ADRIANNE) (Negative) COVID-19 Clin Com Influenza Type A (JEANNA) Negative (Negative) Influenza Type B (JEANNA) Negative (Negative) Influenza A & B Note See Note <WHIT Abdullahi - Last Filed: 07/29/22 18:33> Lab Results 07/29/22 07/29/22 07/29/22 Range/Units 22:56 23:00 23:00 WBC 3.7 L (4.8-10.8) X10*3/uL RBC 4.23 (4.20-5.50) X10*6/uL Hgb 13.6 (12.0-16.0) g/dl Hct 39.5 (37.0-47.0) % MCV 93.4 (80.0-98.0) fL MCH 32.2 (27.0-33.0) pg MCHC 34.4 (31.0-35.0) g/dl RDW 11.9 (11.0-16.0) % Plt Count 125 L (160-400) X10*3/uL MPV 10.7 (9.4-12.3) fL Immature Gran % (Auto) 0.5 H (0.0-0.4) % Neut % (Auto) 69.1 (45-73) % Lymph % (Auto) 16.0 L (20-40) % [place] % (Auto) 13.6 H (2-11) % Eos % (Auto) 0.5 (0-4) % Baso % (Auto) 0.3 (0-2) % Lymph # (Auto) 0.6 L (1.2-4.9) X10*3/uL [place] # (Auto) 0.5 (0.1-1.2) X10*3/uL Eos # (Auto) 0.0 (0.0-0.4) X10*3/uL Baso # (Auto) 0.0 (0.0-0.2) X10*3/uL Abs Immat Gran (auto) 0.02 (0.00-0.03) X10*3/uL Absolute Neuts (auto) 2.6 (2.0-8.3) x10*3/uL Absolute Nucleated RBC 0.000 (0.0-0.012) X10*3/uL Nucleated RBC % (auto) 0.0 (0.0-0.2) /100WBC Sodium 138 (135-145) mmol/L Potassium 3.9 (3.3-5.1) mmol/L Chloride 106 (96-108) mmol/L Carbon Dioxide 23 (22-29) mmol/L Anion Gap 13 (12-20) BUN 9 (9-16) mg/dL Creatinine 0.71 (0.5-1.4) mg/dL Estim Creat Clear Calc 110.2 Estimated GFR > 60 Random Glucose 91 (60-115) mg/dL Calcium 9.4 (8.4-10.2) mg/dL Magnesium 1.8 (1.6-2.6) mg/dL Total Bilirubin 0.8 (0.0-1.0) mg/dL Direct Bilirubin 0.4 (0.0-0.5) mg/dL AST 17 (5-31) U/L ALT 12 (0-31) U/L Alkaline Phosphatase 57 (39-117) U/L Total Protein 7.3 (6.5-8.0) g/dL Albumin 4.5 (3.5-5.0) g/dL Lipase 7 L (8-78) U/L Urine Color Urine Appearance Urine pH (5.0-9.0) Ur Specific [place] (1.005-1.025) Urine Protein (Neg-Trace) mg/dL Urine Glucose (UA) (Negative) mg/dL Urine Ketones (Negative) mg/dL Urine Blood (Negative) Urine Nitrite (Negative) Ur Leukocyte Esterase (Negative) Urine RBC (0-2) /HPF Urine WBC (0-5) /HPF Ur Squamous Epith Cells (0-2) /HPF Urine Bacteria (None Seen) Hyaline Casts (0-2) /LPF Urine Test (NEGATIVE) COVID-19 (ADRIANNE) Negative (Negative) COVID-19 Clin Com See Note Influenza Type A (JEANNA) (Negative) Influenza Type B (JEANNA) (Negative) Influenza A & B Note 07/30/22 07/30/22 07/30/22 Range/Units 00:43 01:00 01:00 WBC (4.8-10.8) X10*3/uL RBC (4.20-5.50) X10*6/uL Hgb (12.0-16.0) g/dl Hct (37.0-47.0) % MCV (80.0-98.0) fL MCH (27.0-33.0) pg MCHC (31.0-35.0) g/dl RDW (11.0-16.0) % Plt Count (160-400) X10*3/uL MPV (9.4-12.3) fL Immature Gran % (Auto) (0.0-0.4) % Neut % (Auto) (45-73) % Lymph % (Auto) (20-40) % [place] % (Auto) (2-11) % Eos % (Auto) (0-4) % Baso % (Auto) (0-2) % Lymph # (Auto) (1.2-4.9) X10*3/uL [place] # (Auto) (0.1-1.2) X10*3/uL Eos # (Auto) (0.0-0.4) X10*3/uL Baso # (Auto) (0.0-0.2) X10*3/uL Abs Immat Gran (auto) (0.00-0.03) X10*3/uL Absolute Neuts (auto) (2.0-8.3) x10*3/uL Absolute Nucleated RBC (0.0-0.012) X10*3/uL Nucleated RBC % (auto) (0.0-0.2) /100WBC Sodium (135-145) mmol/L Potassium (3.3-5.1) mmol/L Chloride (96-108) mmol/L Carbon Dioxide (22-29) mmol/L Anion Gap (12-20) BUN (9-16) mg/dL Creatinine (0.5-1.4) mg/dL Estim Creat Clear Calc Estimated GFR Random Glucose (60-115) mg/dL Calcium (8.4-10.2) mg/dL Magnesium (1.6-2.6) mg/dL Total Bilirubin (0.0-1.0) mg/dL Direct Bilirubin (0.0-0.5) mg/dL AST (5-31) U/L ALT (0-31) U/L Alkaline Phosphatase (39-117) U/L Total Protein (6.5-8.0) g/dL Albumin (3.5-5.0) g/dL Lipase (8-78) U/L Urine Color Dark Yellow Urine Appearance Clear Urine pH 5.5 (5.0-9.0) Ur Specific [place] >= 1.030 H (1.005-1.025) Urine Protein 30 (1+) H (Neg-Trace) mg/dL Urine Glucose (UA) Negative (Negative) mg/dL Urine Ketones 80 (Negative) mg/dL Urine Blood Moderate (2+) H (Negative) Urine Nitrite Negative (Negative) Ur Leukocyte Esterase Negative (Negative) Urine RBC 0-2 (0-2) /HPF Urine WBC 0-5 (0-5) /HPF Ur Squamous Epith Cells 3-5 (0-2) /HPF Urine Bacteria None Seen (None Seen) Hyaline Casts 3-5 (0-2) /LPF Urine Test NEGATIVE (NEGATIVE) COVID-19 (ADRIANNE) (Negative) COVID-19 Clin Com Influenza Type A (JEANNA) Negative (Negative) Influenza Type B (JEANNA) Negative (Negative) Influenza A & B Note See Note <Cortney Frye MD - Last Filed: 07/30/22 06:25> Independent Interpretation I performed an independent interpretation of an: Ultrasound ( Abdominal ultrasound: No acute intra-abdominal pathology.) <Cortney Frye MD - Last Filed: 07/30/22 06:25> Radiology Impression Discussion of test interpretation with radiology: I have reviewed the radiologist's reading. <Cortney Frye MD - Last Filed: 07/30/22 06:25> Medications Administered Discontinued Medications Generic Name Dose Route Start Last Admin Trade Name Freq PRN Reason Stop Dose Admin Al Hydroxide/Mg Hydroxide 30 ml 07/29/22 18:30 07/30/22 01:10 Magnesium Hydrox/Alum Hydrox 30 Ml Oral.Susp PO 07/29/22 18:31 30 ml ONCE ONE Administration Famotidine 20 mg 07/29/22 18:30 07/30/22 01:10 Famotidine/Pf 20 Mg/2 Ml Vial IVPUSH 07/29/22 18:31 20 mg ONCE ONE Administration Sodium Chloride 1,000 mls @ 999 mls/hr 07/29/22 18:30 07/30/22 02:19 Ns IV 07/29/22 19:30 Infused .Q1H1M CHRISTIAN Infusion Ondansetron HCl 4 mg 07/29/22 18:30 07/30/22 01:10 Ondansetron Hcl 4 Mg/2 Ml Vial IVPUSH 07/29/22 18:31 4 mg ONCE ONE Administration <WHIT Abdullahi - Last Filed: 07/29/22 18:33> Medications Administered Discontinued Medications Generic Name Dose Route Start Last Admin Trade Name Freq PRN Reason Stop Dose Admin Al Hydroxide/Mg Hydroxide 30 ml 07/29/22 18:30 07/30/22 01:10 Magnesium Hydrox/Alum Hydrox 30 Ml Oral.Susp PO 07/29/22 18:31 30 ml ONCE ONE Administration Famotidine 20 mg 07/29/22 18:30 07/30/22 01:10 Famotidine/Pf 20 Mg/2 Ml Vial IVPUSH 07/29/22 18:31 20 mg ONCE ONE Administration Sodium Chloride 1,000 mls @ 999 mls/hr 07/29/22 18:30 07/30/22 02:19 Ns IV 07/29/22 19:30 Infused .Q1H1M CHRISTIAN Infusion Ondansetron HCl 4 mg 07/29/22 18:30 01/05/23 01:10 Ondansetron Hcl 4 Mg/2 Ml Vial IVPUSH 07/29/22 18:31 4 mg ONCE ONE Administration <Cortney Frye MD - Last Filed: 07/30/22 06:25> Discharge Plan Discharge Clinical Impression: Gastritis <WHIT Abdullahi - Last Filed: 07/29/22 18:33> Patient Disposition: Home, Self-Care <WHIT Abdullahi - Last Filed: 07/29/22 18:33> Instructions: Gastritis (ED) <WHIT Abdullahi - Last Filed: 07/29/22 18:33> Prescriptions: New omeprazole magnesium [Prilosec OTC] 20 mg tablet,delayed release (DR/EC) 20 mg PO BID Qty: 20 0RF ondansetron 4 mg tablet,disintegrating 4 mg PO Q8-12H PRN (Reason: nausea and vomiting) Qty: 7 0RF No Action albuterol sulfate 90 mcg/actuation HFA aerosol inhaler 1 inh inhalation QID PRN (Reason: shortness of breath or wheezing) Qty: 6.7 0RF ibuprofen 600 mg tablet 600 mg PO Q8H PRN (Reason: pain) Qty: 20 0RF fluticasone propionate [Children's Flonase Allergy Rlf] 50 mcg/actuation spray,suspension 1 spray intranasal BID Qty: 16 0RF Rx Instructions: administer into each nostril cetirizine [Zyrtec] 10 mg tablet 10 mg PO DAILY Qty: 14 0RF hydrocodone-homatropine [Hycodan] 5-1.5 mg/5 mL (5 mL) syrup 5 ml PO Q6H PRN (Reason: cough) Qty: 60 0RF Rx Instructions: partial fill ok azithromycin [Zithromax Z-Sergio] 250 mg tablet See Rx Instructions .ROUTE .COMPLEX Qty: 6 0RF Rx Instructions: take 500 mg today (day 1), then 250 mg for 4 days (days 2-5) prednisone 20 mg tablet 60 mg PO DAILY 5 Days Qty: 15 0RF <WHIT Abdullahi - Last Filed: 07/29/22 18:33> Referrals: Taisha Kaplan MD [Physician] - <WHIT Abdullahi - Last Filed: 07/29/22 18:33>
[2022-07-29 23:07] LABS: MANUAL DIFF FLAG NO
[2022-07-29 23:15] LABS: Basophils Percent Auto 0.3 % (0-2); Eosinophils Percent Auto 0.5 % (0-4); Hematocrit 39.5 % (37.0-47.0); Hemoglobin 13.6 g/dl (12.0-16.0); Imm Gran Abs Auto 0.02 X10*3/uL (0.00-0.03); Imm Gran Pct Auto 0.5 % (0.0-0.4); Lymphocytes Absolute Auto 0.6 X10*3/uL (1.2-4.9); Mean Corpuscular HGB Conc 34.4 g/dl (31.0-35.0); Mean Corpuscular Hemoglobin 32.2 pg (27.0-33.0); Mean Corpuscular Volume 93.4 fL (80.0-98.0); Mean Platelet Volume 10.7 fL (9.4-12.3); Monocytes Absolute Auto 0.5 X10*3/uL (0.1-1.2); Monocytes Percent Auto 13.6 % (2-11); Neutrophils Absolute Auto 2.6 x10*3/uL (2.0-8.3); Neutrophils Percent Auto 69.1 % (45-73); Platelet Count 125 X10*3/uL (160-400); Red Blood Count 4.23 X10*6/uL (4.20-5.50); Red Cell Distribution Width 11.9 % (11.0-16.0); White Blood Count 3.7 X10*3/uL (4.8-10.8)
[2022-07-29 23:26] LABS: Alanine Aminotransferase 12 U/L (0-31); Albumin Level 4.5 g/dL (3.5-5.0); Alkaline Phosphatase 57 U/L (39-117); Anion Gap 13 (12-20); Aspartate Amino Transferase 17 U/L (5-31); Bilirubin Direct 0.4 mg/dL (0.0-0.5); Bilirubin Total 0.8 mg/dL (0.0-1.0); Blood Urea Nitrogen 9 mg/dL (9-16); Calcium 9.4 mg/dL (8.4-10.2); Carbon Dioxide 23 mmol/L (22-29); Chloride 106 mmol/L (96-108); Creatinine Clr Calc Pharmacy 110.2; Estimated Glomerular Filt Rate > 60; Glucose Random 91 mg/dL (60-115); Lipase 7 U/L (8-78); Magnesium 1.8 mg/dL (1.6-2.6); Potassium 3.9 mmol/L (3.3-5.1); Sodium 138 mmol/L (135-145); Total Protein 7.3 g/dL (6.5-8.0)
[2022-07-29 23:27] LABS: COVID-19 Test Negative (Negative); IDNOW Serial# 6674DD1D
[2022-07-30 00:48] VITALS: BP 118/80; PULSE 75; RESP 18; TEMP 36.9; O2SAT 100
[2022-07-30 01:07] LABS: Appearance Urine Clear; Color Urine Dark Yellow; Glucose Urine UA Negative (Negative); Leukocyte Esterase Urine Negative (Negative); Nitrite Urine Negative (Negative); PH 5.5 (5.0-9.0); Specific Gravity - Urine >= 1.030 (1.005-1.025); UMIC TRIGGER UACC YES; Urine Blood Moderate (2+) (Negative); Urine Ketones 80 mg/dL (Negative); Urine Protein 30 (1+) mg/dL (Neg-Trace)
[2022-07-30 01:08] LABS: IDNOW Serial# 16C4AD1C; Influenza A Negative (Negative); Influenza B2 Negative (Negative)
--- NOTE | 2022-07-30 01:08 | PC.NURSE ---
this rn assumed care of pt at 0045. Dr Frye assessed pt advised this rn to medicated pt according to mar. pt in waiting room caused delay in medicating.
[2022-07-30 01:09] LABS: UPreg QC Valid YES; Urine Pregnancy NEGATIVE (NEGATIVE)
[2022-07-30] MEDS: Magnesium Hydrox/Alum Hydrox 30 ML ORAL.SUSP PO (01:10)
[2022-07-30] MEDS: Famotidine/PF 20 MG/2 ML VIAL IVPUSH (01:10)
[2022-07-30] MEDS: 0.9 % Sodium Chloride 1,000 ML 999 ML IV (01:10)
[2022-07-30] MEDS: ondansetron HCL 4 MG/2 ML VIAL IVPUSH (01:10)
[2022-07-30 01:20] LABS: Bacteria Urine None Seen (None Seen); RBC Urine 0-2 /HPF (0-2); WBC Urine 0-5 /HPF (0-5)
--- NOTE | 2022-07-30 02:32 | PC.NURSE ---
pt partner at bedside. pt resting comfortably on stretcher at this time
[2022-07-30 04:56] VITALS: BP 120/78; PULSE 73; RESP 17; TEMP 36.9; O2SAT 100
--- NOTE | 2022-07-30 06:36 | PC.NURSE ---
PT AMBULATORY AT TIME OF DISCHARGE. IV REMOVED AT THIS TIME. PT PARTNER AT BEDSIDE. PT PROVIDED WITH DISCHARGE PACKET AND WORK NOTE. PT VERBALIZED UNDERSTANDING OF DISCHARGE INSTRUCTIONS
== END 2022-07-30 06:38 | disposition home or self-care (01) ==
PROVIDERS: Physician Assistant; Emergency Provider Emergency Medicine
DX: K29.70 Gastritis, unspecified, without bleeding (principal); R10.9 Unspecified abdominal pain; Z20.822 Contact with and (suspected) exposure to COVID-19
CPT/HCPCS: 76705; 80048; 80076; 81001; 81025; 83690; 83735; 85025; 87502; 87635; 96361; 96374; 96375; 99284; J2405

== ENCOUNTER 2022-07-31 17:38 | Emergency (ER) | payer OTHER, SELFPAY ==
--- NOTE | ~2022-07-31 | XR_ITS ---
Indication: Finger injury, pain EXAMINATION: Right fourth finger, left tib-fib EXAMINATION: 3 views of the right fourth finger do not demonstrate acute fracture or dislocation. 2 views of the left tib-fib does not demonstrate evidence for fracture. Sclerosis in the proximal tibia may indicate previous surgical manipulation. Correlation recommended clinically here. XR/XR finger RT min 2V IMPRESSION: No acute finding in the left tib-fib. No acute fracture or dislocation of the right fourth finger
--- NOTE | ~2022-07-31 | XR_ITS ---
Indication: Finger injury, pain EXAMINATION: Right fourth finger, left tib-fib EXAMINATION: 3 views of the right fourth finger do not demonstrate acute fracture or dislocation. 2 views of the left tib-fib does not demonstrate evidence for fracture. Sclerosis in the proximal tibia may indicate previous surgical manipulation. Correlation recommended clinically here. XR/XR tibia fibula LT 2V IMPRESSION: No acute finding in the left tib-fib. No acute fracture or dislocation of the right fourth finger
[2022-07-31 17:50] VITALS: BP 106/66; PULSE 64; PULSE 92; RESP 16; TEMP 527.2; TEMP 981; O2SAT 98; O2SAT 99; BMI 19.5
--- NOTE | 2022-07-31 17:50 | PC.NURSE ---
pt to xray
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
[2022-07-31] MEDS: Acetaminophen 325 MG TABLET 650 MG PO (18:58)
[2022-07-31] MEDS: Ibuprofen 600 MG TABLET PO (18:58)
--- NOTE | 2022-07-31 18:59 | PC.NURSE ---
pt medicated per order
[2022-07-31 19:15] VITALS: TEMP 36.7
== END 2022-07-31 19:45 | disposition home or self-care (01) ==
PROVIDERS: Emergency Provider Emergency Medicine
DX: S60.041A Contusion of right ring finger without damage to nail, initial encounter (principal); M79.605 Pain in left leg; V43.52XA Car driver injured in collision with other type car in traffic accident, initial encounter; Y93.9 Activity, unspecified; Y92.410 Unspecified street and highway as the place of occurrence of the external cause; Y99.9 Unspecified external cause status; Z79.899 Other long term (current) drug therapy
CPT/HCPCS: 73140; 73590; 99283

== ENCOUNTER 2024-01-17 09:45 | Emergency (ER) | payer OTHER, SELFPAY ==
--- NOTE | ~2024-01-17 | XR_ITS ---
EXAMINATION: XR HAND/WRIST, RIGHT CLINICAL INFORMATION: Pain in fourth finger after trauma COMPARISON: 07/31/2022 TECHNIQUE: PA, lateral, and oblique views of the right hand and wrist. FINDINGS: There is a comminuted undisplaced fracture at the base of fourth metacarpal bone without other fractures identified. XR/XR hand wrist RT IMPRESSION: Comminuted undisplaced fracture at the base of the first metacarpal bone
[2024-01-17 09:47] VITALS: BP 132/75; PULSE 93; RESP 18; TEMP 36.8; O2SAT 98; BMI 17.9
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
--- NOTE | 2024-01-17 11:16 | PC.NURSE ---
pt had xray, provider splinted hand
[2024-01-17 11:21] VITALS: BP 132/75; PULSE 93; RESP 18; TEMP 36.8; O2SAT 98
== END 2024-01-17 11:22 | disposition home or self-care (01) ==
PROVIDERS: Emergency Provider Emergency Medicine
DX: S62.304A Unspecified fracture of fourth metacarpal bone, right hand, initial encounter for closed fracture (principal); M25.531 Pain in right wrist; X79.XXXA Intentional self-harm by blunt object, initial encounter; Y93.9 Activity, unspecified; Y92.9 Unspecified place or not applicable; Y99.8 Other external cause status
CPT/HCPCS: 29130; 73110; 73130; 99282; 99283; 99284

== ENCOUNTER 2024-01-22 01:18 | Emergency (ER) | payer OTHER, SELFPAY ==
[2024-01-22 01:31] VITALS: BP 118/85; PULSE 94; RESP 16; TEMP 36.8; O2SAT 99; BMI 17.3
--- NOTE | 2024-01-22 01:57 | ED_ITS ---
HPI - Nausea/Vomiting/Diarrhea General Chief complaint: Nausea/Vomiting/Diarrhea Stated complaint: vomiting Time Seen by Provider: 01/22/24 01:40 Source: patient Mode of arrival: ambulatory Limitations: no limitations History of Present Illness ED Provider: saulo VEGA Narrative: Patient has been having nausea vomiting diarrhea since early today vomited about 7 times and about 4 times had diarrhea had chills no fever no abdominal pain no urinary complaints no other family member sick Related Data Previous Rx's ?Medication ?Instructions ?Recorded albuterol sulfate 90 mcg/actuation 1 inh inhalation QID PRN shortness 02/05/21 aerosol inhaler of breath or wheezing #6.7 grams cetirizine 10 mg tablet (Zyrtec) 10 mg PO DAILY #14 tabs 02/05/21 fluticasone propionate 50 1 spray intranasal BID #16 grams 02/05/21 mcg/actuation nasal spray,suspension (Children's Flonase Allergy Relief) hydrocodone-homatropine 5 mg-1.5 5 ml PO Q6H PRN cough #60 mL 02/05/21 mg/5 mL (5 mL) oral syrup (Hycodan) ibuprofen 600 mg tablet 600 mg PO Q8H PRN pain #20 tabs 02/05/21 azithromycin 250 mg tablet See Rx Instructions PO .COMPLEX #6 09/10/21 (Zithromax Z-Sergio) tabs prednisone 20 mg tablet 60 mg (3 x 20 mg) PO DAILY 5 days 09/10/21 #15 tabs omeprazole magnesium 20 mg 20 mg PO BID #20 tabs 07/30/22 tablet,delayed release (Prilosec OTC) ondansetron 4 mg disintegrating 4 mg PO Q8-12H PRN nausea and 07/30/22 tablet vomiting #7 tabs ondansetron 4 mg disintegrating 4 mg PO Q6-8H PRN nausea and 01/22/24 tablet vomiting #7 tabs Allergies Allergy/AdvReac Type Severity Reaction Status Date / Time No Known Allergies Allergy Verified 01/22/24 01:33 Review of Systems 2 Review of Systems: Yes all other systems are reviewed and are negative PMFSH Past Medical History Medical History Asthma Social History Social History Alcohol intake: current Alcohol intake frequency: a few times a week Patient Tobacco Use Status: Never used Tobacco Smoked in Last 30 Days: No Substance Use Type: Marijuana Advance Directives: No Advance Directives Information Provided: Yes Physical Exam 2 Vital Signs: Vital Signs: Last Vital Signs Temp 98.3 F 01/22/24 01:31 Pulse 94 01/22/24 01:31 Resp 16 01/22/24 01:31 BP 118/85 01/22/24 01:31 Pulse Ox 99 01/22/24 01:31 O2 Del Method Room Air 01/22/24 01:31 BMI result Body Mass Index 17.3 Appearance: Alert. Oriented X3. No acute distress. Eyes: No pallor or icterus ENT: Pharynx normal. Oral Mucosa moist Neck: Normal inspection. Neck supple. CVS: Normal heart rate and rhythm. Pulses normal. Respiratory: No respiratory distress. Equal air entry bilateral, no wheezing/rales/rhonchi Abdomen: Soft and nontender. Bowel sounds are present, no mass palpable, no CVA tenderness Skin: Skin warm and dry. Normal skin color. Normal skin turgor. Extremities: No lower extremity edema. No calf tenderness Neuro: Oriented X 3. No motor deficit. Medications Administered Discontinued Medications Generic Name Dose Route Start Last Admin Trade Name Andrésq PRN Reason Stop Dose Admin Ondansetron HCl 4 mg 01/22/24 02:03 01/22/24 02:20 Ondansetron Odt 4 Mg Tab.Rapdis TRANSLINGU 01/22/24 02:04 4 mg ONCE ONE Administration Ondansetron HCl 4 mg 01/22/24 05:28 01/22/24 05:36 Ondansetron Odt 4 Mg Tab.Rapdis TRANSLINGU 01/22/24 05:29 4 mg ONCE ONE Administration Medical Decision Making Medical Decision Making MDM Narrative: Patient with gastroenteritis taking p.o. fluids feels better does not want to give the urine sample discharge patient home Lab Data [facility] Lab Attestation statement: I reviewed the patient's lab results. 01/22/24 01:57 01/22/24 01:57 Labs: Lab Results 01/22/24 Range/Units 01:57 WBC 4.7 L (4.8-10.8) X10*3/uL RBC 4.24 (4.20-5.50) X10*6/uL Hgb 13.6 (12.0-16.0) g/dl Hct 39.3 (37.0-47.0) % MCV 92.7 (80.0-98.0) fL MCH 32.1 (27.0-33.0) pg MCHC 34.6 (31.0-35.0) g/dl RDW 11.9 (11.0-16.0) % Plt Count 126 L (160-400) X10*3/uL MPV 10.8 (9.4-12.3) fL Immature Gran % (Auto) 0.4 (0.0-0.4) % Neut % (Auto) 83.1 H (45-73) % Lymph % (Auto) 6.8 L (20-40) % [place] % (Auto) 9.3 (2-11) % Eos % (Auto) 0.2 (0-4) % Baso % (Auto) 0.2 (0-2) % Lymph # (Auto) 0.3 L (1.2-4.9) X10*3/uL [place] # (Auto) 0.4 (0.1-1.2) X10*3/uL Eos # (Auto) 0.0 (0.0-0.4) X10*3/uL Baso # (Auto) 0.0 (0.0-0.2) X10*3/uL Abs Immat Gran (auto) 0.02 (0.00-0.03) X10*3/uL Absolute Neuts (auto) 3.9 (2.0-8.3) x10*3/uL Absolute Nucleated RBC 0.000 (0.0-0.012) X10*3/uL Nucleated RBC % (auto) 0.0 (0.0-0.2) /100WBC Sodium 137 (135-145) mmol/L Potassium 3.6 (3.3-5.1) mmol/L Chloride 107 (96-108) mmol/L Carbon Dioxide 21 L (22-29) mmol/L Anion Gap 13 (12-20) BUN 10 (9-16) mg/dL Creatinine 0.71 (0.5-1.4) mg/dL Estim Creat Clear Calc 96.6 Estimated GFR > 60 Random Glucose 107 (60-115) mg/dL Calcium 9.5 (8.4-10.2) mg/dL Discharge Plan Discharge Clinical Impression: Gastroenteritis Patient Disposition: Home, Self-Care Instructions: Gastroenteritis (ED) Additional Instructions: Drink plenty of fluids Medicine for nausea as prescribed Prescriptions: New ondansetron 4 mg tablet,disintegrating 4 mg PO Q6-8H PRN (Reason: nausea and vomiting) Qty: 7 0RF No Action albuterol sulfate 90 mcg/actuation HFA aerosol inhaler 1 inh inhalation QID PRN (Reason: shortness of breath or wheezing) Qty: 6.7 0RF ibuprofen 600 mg tablet 600 mg PO Q8H PRN (Reason: pain) Qty: 20 0RF fluticasone propionate [Children's Flonase Allergy Rlf] 50 mcg/actuation spray,suspension 1 spray intranasal BID Qty: 16 0RF Rx Instructions: administer into each nostril cetirizine [Zyrtec] 10 mg tablet 10 mg PO DAILY Qty: 14 0RF hydrocodone-homatropine [Hycodan] 5-1.5 mg/5 mL (5 mL) syrup 5 ml PO Q6H PRN (Reason: cough) Qty: 60 0RF Rx Instructions: partial fill ok azithromycin [Zithromax Z-Sergio] 250 mg tablet See Rx Instructions .ROUTE .COMPLEX Qty: 6 0RF Rx Instructions: take 500 mg today (day 1), then 250 mg for 4 days (days 2-5) prednisone 20 mg tablet 60 mg PO DAILY 5 Days Qty: 15 0RF omeprazole magnesium [Prilosec OTC] 20 mg tablet,delayed release (DR/EC) 20 mg PO BID Qty: 20 0RF ondansetron 4 mg tablet,disintegrating 4 mg PO Q8-12H PRN (Reason: nausea and vomiting) Qty: 7 0RF Print Language: Chinese
[2024-01-22 02:03] LABS: MANUAL DIFF FLAG NO
[2024-01-22 02:04] LABS: Basophils Percent Auto 0.2 % (0-2); Eosinophils Percent Auto 0.2 % (0-4); Hematocrit 39.3 % (37.0-47.0); Hemoglobin 13.6 g/dl (12.0-16.0); Imm Gran Abs Auto 0.02 X10*3/uL (0.00-0.03); Imm Gran Pct Auto 0.4 % (0.0-0.4); Lymphocytes Absolute Auto 0.3 X10*3/uL (1.2-4.9); Lymphocytes Percent Auto 6.8 % (20-40); Mean Corpuscular HGB Conc 34.6 g/dl (31.0-35.0); Mean Corpuscular Hemoglobin 32.1 pg (27.0-33.0); Mean Corpuscular Volume 92.7 fL (80.0-98.0); Mean Platelet Volume 10.8 fL (9.4-12.3); Monocytes Absolute Auto 0.4 X10*3/uL (0.1-1.2); Monocytes Percent Auto 9.3 % (2-11); Neutrophils Absolute Auto 3.9 x10*3/uL (2.0-8.3); Neutrophils Percent Auto 83.1 % (45-73); Platelet Count 126 X10*3/uL (160-400); Red Blood Count 4.24 X10*6/uL (4.20-5.50); Red Cell Distribution Width 11.9 % (11.0-16.0); White Blood Count 4.7 X10*3/uL (4.8-10.8)
[2024-01-22 02:15] LABS: Anion Gap 13 (12-20); Blood Urea Nitrogen 10 mg/dL (9-16); Calcium 9.5 mg/dL (8.4-10.2); Carbon Dioxide 21 mmol/L (22-29); Chloride 107 mmol/L (96-108); Creatinine Clr Calc Pharmacy 96.6; Estimated Glomerular Filt Rate > 60; Glucose Random 107 mg/dL (60-115); Potassium 3.6 mmol/L (3.3-5.1); Sodium 137 mmol/L (135-145)
[2024-01-22] MEDS: Ondansetron ODT 4 MG TAB.RAPDIS TRANSLINGU ×2 (02:20→05:36)
[2024-01-22 06:38] VITALS: BP 118/80; PULSE 94; RESP 18; TEMP 36.9; O2SAT 100
[2024-01-22 06:40] VITALS: BP 118/80; PULSE 94; RESP 18; TEMP 36.9; O2SAT 100
== END 2024-01-22 06:41 | disposition home or self-care (01) ==
PROVIDERS: Emergency Provider Internal Medicine
DX: K52.9 Noninfective gastroenteritis and colitis, unspecified (principal); R11.2 Nausea with vomiting, unspecified; Z79.899 Other long term (current) drug therapy
CPT/HCPCS: 36415; 80048; 85025; 99283; 99284

== ENCOUNTER 2024-01-24 09:34 | Outpatient (REF) | payer OTHER, SELFPAY ==
--- NOTE | ~2024-01-24 | XR_ITS ---
EXAMINATION: XR HAND, RIGHT CLINICAL INFORMATION: 4th metacarpal fracture follow-up COMPARISON: Radiographs 01/17/2024 TECHNIQUE: PA, lateral, and oblique views of the right hand. FINDINGS: Stable appearance and alignment of the comminuted fracture of the base of the 4th metacarpal. Extension into the CMC joint is suspected. No definite osseous bridging. No new abnormality. XR/XR hand RT min 3V IMPRESSION: Stable appearance and alignment of the 4th metacarpal fracture. No definite osseous bridging.
== END 2024-01-24 09:35 | disposition home or self-care (01) ==
LOC: HO.HOSX 09:34
DX: M79.641 Pain in right hand (principal)
CPT/HCPCS: 73130

== ENCOUNTER 2024-01-24 14:02 | Outpatient (AMB) | payer OTHER, SELFPAY ==
--- NOTE | 2024-01-24 14:55 | MHC.OFFVIS ---
Vital Signs 01/24/24 14:59 Height 5 ft 6 in Weight 115 lb BMI 18.6 Intake Visit Reasons: FC-fracture at the base of fourth MC, right hand Intake Note: Elda is a 23 year old right hand dominant female who presents today for evaluation of her Right 4h MC fx. Patient reorts that about a week ago she punched a wall. She explains that she is having pain along the 4th and 5th MC and the wrist. Numbness and tingling is felt along the entirety of the 4th and 5th digits. She is still currently at work with her injury. Allergies No Known Allergies Allergy (Verified 01/22/24 01:33) HPI HPI FC-fracture at the base of fourth MC, right hand: Details: Patient 23-year-old right-hand dominant female presents for evaluation of 4th metacarpal fracture, date of injury 01/16/2024. Patient states that she punched a wall, and that was how injury occurred. Patient was previously evaluated in the emergency department on 01/17/2024, where she was placed in an ulnar gutter splint and instructed to keep this on until follow-up with orthopedics. At this time, patient reports that she is not in pain at baseline, but experiences moderate to severe tenderness to palpation about the fracture site. Since time of injury, patient reports intermittent numbness and tingling in the ring and small fingers of the right hand. 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 [facility] Medical History Asthma Social History (Updated 01/24/24 @ 14:59 by Tessy Aquino CMA) Alcohol intake: current Alcohol intake frequency: a few times a week Patient Tobacco Use Status: Never used Tobacco Substance Use Type: Marijuana Current occupational status: employed Current occupation: Factory Review of Systems Const All systems reviewed & are unremarkable except as noted in HPI and below Physical Exam Vital Signs: BMI result Body Mass Index 18.6 Const Other: Patient is alert, oriented, cooperative, and in no acute distress HEENT Head: Yes normocephalic and Yes atraumatic Resp Effort & Inspection: normal respiratory effort and able to speak in complete sentences Cardio Jugular venous distension: no JVD Neuro General: gait normal Cognition (Neuro): normal cognition Extrem Other: Patient is alert, oriented, and in no acute distress. Neuro: Patient reports slightly diminished sensation in the ulnar nerve distribution of the right hand at time of exam. Median, radial nerves motor and sensory intact and sensation is normal to the tips of all digits. Vascular: Cap refill brisk Pain: Patient reports moderate to severe tenderness to palpation on both the dorsal and volar aspects of the right hand about the fracture site. ROM: Patient is able to extend fingers fully, and with encouragement is able to make a fist. Skin: No lacerations or abrasions. General: Edema and ecchymosis noted on both the dorsal and volar aspects of the 4th metacarpal base No rotational deformities noted with flexion and extension of the fingers Psych: Appears grossly normal Affect normal Attitude cooperative Psych Appearance: grossly normal Mental Status: mental status grossly normal Office Procedures Fracture Care Details: Nondisplaced, extra-articular fracture of the right 4th metacarpal base Fracture Billing Code: Fracture Billing Code Results Reviewed Results Reviewed: X-rays obtained in the office today and independently reviewed by me, Nabil Andrea PA-C, demonstrate nondisplaced, extra-articular fracture of the right 4th metacarpal base, largely unchanged from x-rays obtained in the ED on 01/17/2024. Assessment & Plan Assessment & Plan (1) Fracture of fourth metacarpal bone of right hand: Code(s): S62.304A - Unspecified fracture of fourth metacarpal bone, right hand, initial encounter for closed fracture Category: Medical Qualifiers: Encounter type: initial encounter Fracture alignment: nondisplaced Fracture type: closed Metacarpal location: neck Qualified Code(s): S62.364A - Nondisplaced fracture of neck of fourth metacarpal bone, right hand, initial encounter for closed fracture Plan 1. Right 4th metacarpal base fracture, extra-articular Date of injury 01/16/2024 At this time, after consultation with Dr. Wallace, we decided that the patient can be managed conservatively. Patient fitted with a Velcro wrist splint to wear most of the time, but that can be removed for gentle wrist range of motion and bathing. Patient's right ring and middle fingers will also be james-taped at all times, to prevent rotational displacement but to allow for range of motion of the right ring finger. Patient is given a 2 lb weight restriction in her right hand, and is given a work note expressing this. Patient is educated to continue to move at both the wrist and finger joints, in order to prevent stiffness. Patient will follow-up with me in clinic in 2 weeks for repeat x-rays, [id number] check, and assessment of fracture healing,, sooner with any acute concerns. Orders: Orders XR hand RT min 3V 01/24/24 M79.641 - Pain in right hand Coding Level of Care Code New Pt Level 3 (14247) Diagnoses Closed nondisplaced fracture of neck of fourth metacarpal bone of right hand, initial encounter S62.364A Encounter type: initial encounter Fracture alignment: nondisplaced Fracture type: closed Metacarpal location: neck CPT Codes Fracture Care - Fracture Billing Code: Fracture Billing Code ([id number])
[2024-01-24 14:59] VITALS: BMI 18.6
== END 2024-01-24 15:48 | disposition home or self-care (01) ==
DX: S62.364A Nondisplaced fracture of neck of fourth metacarpal bone, right hand, initial encounter for closed fracture (principal)
CPT/HCPCS: 99203

== ENCOUNTER 2024-02-07 14:17 | Outpatient (AMB) | payer OTHER, SELFPAY ==
--- NOTE | 2024-02-07 14:25 | A.OFFVIS_ITS ---
Vital Signs 02/07/24 14:26 Height 5 ft 6 in Weight 115 lb BMI 18.6 Handedness Right Intake Visit Reasons: OV - fx at the base of [facility], rt hand Intake Note: Elda is a 23 year old right hand dominant female who presents today for a follow up of her right hand fracture of neck of fourth metacarpal s/p DOI: 01/16/2024. Patient reports her symptoms since her last visit have improved. She expresses pain that comes and goes when she removes the james tape to move her fingers but is able to tolerate the pain without pain medication. She is able to make a full clenched fist and states her ROM and stifness have improved. Relief is found when wearing her velcro splint. Allergies No Known Allergies Allergy (Verified 02/07/24 14:29) HPI HPI OV - fx at the [facility], rt hand: Details: Patient is a 23 YO F presenting for follow up for right fourth metacarpal base fracture, DOI 01/16/24. Patient reports that she is doing well, and that she is only experiencing slight pain when her fingers are not james taped. Patient reports that she has been compliant with james taping, wrist splint, and 2 pound weight restriction. No other acute concerns at this time. [facility] Medical History Asthma Social History Alcohol intake: current Alcohol intake frequency: a few times a week Patient Tobacco Use Status: Never used Tobacco Substance Use Type: Marijuana Current occupational status: employed Current occupation: Factory Physical Exam Vital Signs: BMI result Body Mass Index 18.6 Extrem Other: Patient is alert, oriented, and in no acute distress. Neuro: Median, ulnar, radial nerves motor and sensory intact and sensation is normal to the tips of all digits. Vascular: Cap refill brisk Pain: No pain at this time ROM: Patient has full active ROM in the right hand and wrist Able to make a closed fist No rotational deformity noted Skin: No lacerations or abrasions. General: No ecchymosis, erythema, or evidence of infection. Psych: Appears grossly normal Affect normal Attitude cooperative Results Reviewed Results Reviewed: X-rays obtained in the office today and independently reviewed by me, Nabil Andrea PA-C, demonstrate nondisplaced fracture of the right fourth metacarpal base, with evidence of interval bony healing Assessment & Plan Assessment & Plan (1) Fracture of fourth metacarpal bone of right hand: Code(s): S62.304A - Unspecified fracture of fourth metacarpal bone, right hand, initial encounter for closed fracture Category: Medical Qualifiers: Encounter type: initial encounter Fracture alignment: nondisplaced Fracture type: closed Metacarpal location: base Qualified Code(s): S62.344A - Nondisplaced fracture of base of fourth metacarpal bone, right hand, initial encounter for closed fracture Plan 1. Fourth metacarpal base fracture, nondisplaced Patient is healing well, and there has been no displacement of the fracture since previous evaluation Patient can continue to be managed conservatively at this time Patient is educated to continue to use james taping for finger stability Patient is enouraged to continue use of velcro wrist splint at work or when out, but can remove when resting to work on gentle ROM of the R wrist Patient provided with a note stating that she will continue to have a 2 pound weight restriction in her R hand until next follow up Patient will follow up in 4 week for repeat x rays and further evaluation, sooner with any acute concerns Orders: Orders XR hand RT min 3V Today M79.641 - Pain in right hand Coding Level of Care Code Global (72864) Diagnoses Closed nondisplaced fracture of base of fourth metacarpal bone of right hand, initial encounter S62.344A Encounter type: initial encounter Fracture alignment: nondisplaced Fracture type: closed Metacarpal location: base
[2024-02-07 14:26] VITALS: BMI 18.6
== END 2024-02-07 14:52 | disposition home or self-care (01) ==
DX: S62.344A Nondisplaced fracture of base of fourth metacarpal bone, right hand, initial encounter for closed fracture (principal)
CPT/HCPCS: 99213

== ENCOUNTER 2024-02-07 14:17 | Outpatient (REF) | payer OTHER, SELFPAY ==
--- NOTE | ~2024-02-07 | XR_ITS ---
EXAMINATION: XR HAND, RIGHT CLINICAL INFORMATION: Pain right hand, attention fourth metacarpal. COMPARISON: 01/24/2024. TECHNIQUE: PA, lateral, and oblique views of the right hand. FINDINGS: Redemonstration of comminuted fracture of the base of the fourth metacarpal with possible extension into the CMC as previously noted. There is evidence of interval callus formation. Punctate calcific/ossific density distal to the ulnar styloid. Fracture line is still visible. XR/XR hand RT min 3V IMPRESSION: Healing fracture at the base of the fourth metacarpal.
== END 2024-02-07 14:18 | disposition home or self-care (01) ==
LOC: HO.HOSX 14:17
DX: S62.344D Nondisplaced fracture of base of fourth metacarpal bone, right hand, subsequent encounter for fracture with routine healing (principal)
CPT/HCPCS: 73130

== ENCOUNTER 2024-03-05 15:20 | Outpatient (REF) | payer OTHER, SELFPAY | END 2024-03-05 15:21 | disposition home or self-care (01) | LOC: HO.HOSX 15:20 | DX: Z13.89 Encounter for screening for other disorder (principal) ==

== ENCOUNTER 2024-03-06 14:16 | Outpatient (AMB) | payer OTHER, SELFPAY ==
--- NOTE | 2024-03-06 14:41 | A.OFFVIS_ITS ---
Vital Signs 03/06/24 14:44 Handedness Right Intake Visit Reasons: OV - fx at the base of [facility], rt hand Intake Note: Elda is a 23 year old right hand dominant female who presents today for a follow up of her right hand fracture of neck of fourth metacarpal s/p DOI: 01/16/2024. Patient report she is feeling well. She was given a velcro splint at last visit to wear at work and with activities throughout the day and states since has been working on her ROM. Her ROM is well. Pt able to make a full closed fist and has no complaints of pain. She has followed her restriction of 2 lbs weight limit in right hand. Allergies No Known Allergies Allergy (Verified 03/06/24 14:44) HPI HPI OV - fx at the [facility], rt hand: Details: Patient is a 23-year-old female who presents for 4 week follow-up of right 4th metacarpal base fracture, date of injury 01/16/2024. The patient reports that, up to this point, she has been wearing the velcro wrist splint with daytime activities, but has been removing it for bathing, while at rest, while at home relaxing, or sleeping. The patient reports that she has no pain at this time, and then her range of motion is full. Patient denies any numbness or tingling of the right hand. No other acute complaints or concerns at this time. [facility] Medical History Asthma Social History Alcohol intake: current Alcohol intake frequency: a few times a week Patient Tobacco Use Status: Never used Tobacco Substance Use Type: Marijuana Current occupational status: employed Current occupation: Factory Review of Systems Const All systems reviewed & are unremarkable except as noted in HPI and below Physical Exam Extrem Other: Patient is alert, oriented, and in no acute distress. Neuro: Median, ulnar, radial nerves motor and sensory intact and sensation is normal to the tips of all digits. Vascular: Cap refill brisk Pain: Patient reports no tenderness to palpation at this time [id number] testing nonpainful ROM: Range of motion of the right hand and wrist full and intact Patient is able to make a full closed fist Skin: No lacerations or abrasions. General: No ecchymosis, erythema, or evidence of infection. Psych: Appears grossly normal Affect normal Attitude cooperative Results Reviewed Results Reviewed: X-rays obtained in the office today and independently reviewed by me, Nabil Andrea PA-C, demonstrate nondisplaced fracture of 4th metacarpal base with evidence of interval bony healing and callus formation. Assessment & Plan Assessment & Plan (1) Fracture of fourth metacarpal bone of right hand: Code(s): S62.304A - Unspecified fracture of fourth metacarpal bone, right hand, initial encounter for closed fracture Category: Medical Qualifiers: Encounter type: initial encounter Fracture alignment: nondisplaced Fracture type: closed Metacarpal location: base Qualified Code(s): S62.344A - Nondisplaced fracture of base of fourth metacarpal bone, right hand, initial encounter for closed fracture Plan 1. Right 4th metacarpal base fracture, extra-articular, nondisplaced Date of injury 01/16/2024 Patient is informed that she can continue to wean out of the Velcro wrist splint at this time However, due to the nature of her work, I feel she should continue to wear the Velcro wrist splint to work for the next 3-4 weeks to prevent re-injury Patient is told she can begin a gradual ramp up to normal activity, but should still continue to avoid any high energy activities that could potentially re- injure the area Patient will follow-up in 3-4 weeks, with x-rays of the patient begins to experience any new symptoms, for final evaluation, sooner if any acute concerns Orders: Orders XR hand RT min 3V Today M79.641 - Pain in right hand Coding Level of Care Code Global (60791) Diagnoses Closed nondisplaced fracture of base of fourth metacarpal bone of right hand, initial encounter S62.344A Encounter type: initial encounter Fracture alignment: nondisplaced Fracture type: closed Metacarpal location: base
== END 2024-03-06 15:15 | disposition home or self-care (01) ==
DX: S62.344A Nondisplaced fracture of base of fourth metacarpal bone, right hand, initial encounter for closed fracture (principal)
CPT/HCPCS: 99213

== ENCOUNTER 2024-03-06 15:20 | Outpatient (REF) | payer OTHER, SELFPAY ==
--- NOTE | ~2024-03-06 | XR_ITS ---
EXAMINATION: XR HAND, RIGHT CLINICAL INFORMATION: Pain. COMPARISON: Prior radiographs, most recently 02/07/2024. TECHNIQUE: PA, lateral, and oblique views of the right hand. FINDINGS: Bony alignment and mineralization are normal. There is a slight ulnar minus variance. There is an oblique, nondisplaced fracture of the proximal metaphysis of the fourth metacarpal bone. Alignment is stable. There is adjacent periosteal callus formation. The proximal and distal carpal rows are intact. There is no bone erosion. No focal soft tissue swelling, gas or foreign body is seen. XR/XR hand RT min 3V IMPRESSION: There is stable alignment of an oblique, nondisplaced fracture of the proximal metaphysis of the right fourth metacarpal bone. There is adjacent periosteal thickening. Electronically signed by: Bong Lucia MD 04/04/2024 07:34 PM EDT
== END 2024-03-06 15:21 | disposition home or self-care (01) ==
LOC: HO.HOSX 15:20
DX: M79.641 Pain in right hand (principal)
CPT/HCPCS: 73130